=== PATIENT | male | born 1960 | race Caucasian/White ===

== ENCOUNTER 2022-02-22 12:10 | Outpatient (CLI) | payer OTHER, SELFPAY ==
--- NOTE | 2022-02-22 12:54 | CT_ITS ---
WS: [id number] CT CHEST TECHNIQUE: Noncontrast CT of the chest with coronal and sagittal reformatted images. CLINICAL INFORMATION: MULTIPLE NODULES OF LUNG COMPARISON: No available comparisons. DLP: 787.[address] scans at [facility] use at least one of these dose optimization techniques: automated e xposure control; mA and/or kV adjustment per patient size (includes targeted exams where dose is matc hed to clinical indication); or iterative reconstruction. FINDINGS: Mild chronic emphysematous changes. No acute pulmonary infiltrates. No focal pneumonia or pleural flu id. A few calcified granulomas. Multiple noncalcified subcentimeter pulmonary nodules largest in the RIGHT upper lobe and RIGHT lower lobe subpleural measuring 4 to 5 mm. Recommend 12 month follow-up. N o focal pneumonia or pleural fluid. Normal caliber thoracic aorta. Mild aortic calcification. Coronar y calcification. No mediastinal or hilar lymphadenopathy. Normal GE junction. Splenic artery calcification. Mild thoracic kyphosis. CT/CT chest wo con [id number] IMPRESSION: 1. Multiple scattered noncalcified subcentimeter pulmonary nodules largest in the RIGHT upper lobe and RIGHT lower lobe subpleural measuring 4 to 5 mm. Recom mend [address] follow-up. 2. Mild chronic emphysematous changes. No acute pulmonary infiltrates. 3. No focal pneumonia or pleural fluid. 4. No other remarkable findings.
== END 2022-02-22 12:11 | disposition home or self-care (01) ==
PROVIDERS: PCP Family Medicine; Visit Provider Family Medicine
DX: R91.8 Other nonspecific abnormal finding of lung field (principal)
CPT/HCPCS: 71250

== ENCOUNTER 2023-11-25 09:49 | Outpatient (CLI) | payer OTHER, SELFPAY ==
--- NOTE | 2023-11-25 09:52 | XRR_ITS ---
PROCEDURE INFORMATION: Exam: XR Sacrum and Coccyx, 2 or More Views Exam date and time: 11/25/2023 10:04 AM Age: 63 years old Clinical indication: Condition or disease; Ulcer, pressure - sacral region; Unspecified stage; Additional info: Pressure ulcer TECHNIQUE: Imaging protocol: XR of the sacrum and coccyx, 2 or more views. COMPARISON: No relevant prior studies available. FINDINGS: Bones/joints: No lytic or sclerotic bone lesion. There is slightly diminished bone density in the lower sacrum/upper coccyx, very poorly visualized. The possibility of infection exists. MR recommended.. No acute fracture. Soft tissues: Normal. XR/XR sacrum coccyx min 2V [id number] IMPRESSION: Possible demineralization of the lower sacrum. MR recommended.
== END 2023-11-25 09:50 | disposition home or self-care (01) ==
LOC: RAD 09:50
PROVIDERS: PCP Family Medicine; Visit Provider Nurse Practitioner Family
DX: L89.153 Pressure ulcer of sacral region, stage 3 (principal)
CPT/HCPCS: 72220

== ENCOUNTER 2023-11-26 13:49 | Outpatient (CLI) | payer OTHER, SELFPAY ==
[2023-11-26 14:15] LABS: Basophils # 0.1 10^3/uL (0.0-0.1); Eosinophils # 0.5 10^3/uL (0.0-0.8); Eosinophils % 5.7 %; Hematocrit 48.4 % (37-53); Lymphocytes # 1.9 10^3/uL (0.8-4.8); Lymphocytes % 20.6 %; Mean Corpuscular HGB Conc 32.2 g/dL (30-55); Mean Corpuscular Hemoglobin 29.3 pg (27-33); Mean Corpuscular Volume 90.8 fl (82-101); Monocytes # 0.7 10^3/uL (0.2-0.9); Monocytes % 8.2 %; Neutrophils # 5.64 10^3/uL (1.8-7.7); Neutrophils % 62.5 %; Nucleated Red Blood Cells % 0 %; Platelet Count 456 10^3/cmm (157-399); Red Blood Count 5.33 10^6/uL (3.85-5.65); White Blood Count 9.02 10^3/uL (3.29-11.43)
[2023-11-26 14:19] LABS: Erythrocyte Sedimentation Rate 8 mm/hr (0-10)
[2023-11-26 14:34] LABS: Alanine Aminotransferase 107 U/L (0-41); Alkaline Phosphatase 111 U/L (40-130); Anion Gap 11.2 (5-19); Aspartate Amino Transferase 46 U/L (0-40); Blood Urea Nitrogen 16 mg/dL (8-23); C Reactive Protein 8.5 mg/L (0.0-4.9); Calcium 9.2 mg/dL (8.5-10.5); Carbon Dioxide 29 mmol/L (22-29); Chloride 99 mmol/L (98-107); Globulin 3.7 g/dL (1.3-4.6); Glomerular Filtration Rate 75.7 mL/min (90-130); Glucose 98 mg/dL (65-115); Osmolality Calculated 281 mOsm/kg (285-295); Potassium 4.2 mmol/L (3.5-5.1); Prealbumin 23.4 mg/dL (20-40); Sodium 135 mmol/L (136-145); Total Bilirubin 0.3 mg/dL (0.15-1.2); Total Protein 7.7 g/dL (6.6-8.7)
== END 2023-11-26 13:50 | disposition home or self-care (01) ==
LOC: LAB 13:52
PROVIDERS: PCP Family Medicine; Visit Provider Thoracic Surgery (Cardiothoracic Vascular Surgery)
DX: L89.153 Pressure ulcer of sacral region, stage 3 (principal)
CPT/HCPCS: 36415; 80053; 84134; 85025; 85651; 86140

== ENCOUNTER → 2023-12-01 16:36 | Outpatient (BNVA) | payer OTHER, SELFPAY | PROVIDERS: PCP Family Medicine; Visit Provider Thoracic Surgery (Cardiothoracic Vascular Surgery) | DX: L02.91 Cutaneous abscess, unspecified (principal) | CPT/HCPCS: 87070; 87075; 87205 ==

== ENCOUNTER 2024-11-03 15:36 | Outpatient (CLI) | payer OTHER, SELFPAY ==
--- NOTE | 2024-11-03 15:56 | MR_ITS ---
WS: [id number] MRI BRAIN WITHOUT CONTRAST HISTORY: TENSION HEADACHES COMPARISON: None available. TECHNIQUE: Diffusion imaging, multiplanar T1, T2 and FLAIR imaging obtained. T2 shine through in the posterior RIGHT frontal cortex with an area of volume loss and prior infarct. Few small susceptibility artifacts are noted at the site of the infarct. Increased T2 and FLAIR signal in the RIGHT frontal cortex from gliosis. There are a few additional scattered T2 and FLAIR signal hyperintensities bilaterally from small vessel disease. Mild symmetric volume loss. Prominent perivascular space along the bases of the basal ganglia. Ventricles and extra-axial spaces are normal. No inferior displacement of cerebellar tonsils. The sella turcica and pituitary gland are unremarkable. Dural venous sinuses and [place] demonstrate no abnormality on this unenhanced studies. Paranasal sinuses: Clear. Mastoid air cells: Normal. Calvarium and scalp: Intact. MR/MR head wo con* [id number] IMPRESSION: 1. Focal area of gliosis with a few susceptibility artifacts involving the pos terior RIGHT frontal cortex. Consistent with a prior infarct. 2. No acute diffusion abnormalities. 3. Mild cerebral atrophy and mild small vessel disease. 4. Normal sized ventricles.
== END 2024-11-03 15:37 | disposition home or self-care (01) ==
LOC: RAD 15:40
PROVIDERS: PCP Family Medicine; Visit Provider Family Medicine
DX: G44.229 Chronic tension-type headache, not intractable (principal); I63.9 Cerebral infarction, unspecified; G93.89 Other specified disorders of brain; G31.89 Other specified degenerative diseases of nervous system; I67.89 Other cerebrovascular disease
CPT/HCPCS: 70551